=== PATIENT | female | born 1965 | race American Indian/Alaskan Native ===

== ENCOUNTER 2018-04-10 07:03 | Day surgery (SDC) | payer MEDICARE ==
[2018-04-10] MEDS ORDERED: XYLOCAINE MPF 2% ONE (07:20)
[2018-04-10] MEDS ORDERED: SUBLIMAZE ONE ×3 (07:21→09:59)
[2018-04-10] MEDS ORDERED: DIPRIVAN 10 MG/ML IV ONE ×5 (07:21→10:05)
--- NOTE | 2018-04-10 08:04 | Anesthesia Day of Surgery ---
Anesthesia Day of Surgery - Day of Surgery Patient Examined: Yes Patient H&P Reviewed: Yes Patient is NPO: Yes
[2018-04-10] MEDS ORDERED: PHENERGAN PO NR ×2 (08:30→08:48)
[2018-04-10] MEDS ORDERED: PROVENTIL IH NR (08:30)
--- NOTE | 2018-04-10 08:59 | Anesthesia Day of Surgery ---
Anesthesia Day of Surgery - Day of Surgery Patient Examined: Yes Patient H&P Reviewed: Yes Patient is NPO: Yes
[2018-04-10] MEDS ORDERED: BENADRYL IV PRN (09:00)
[2018-04-10] MEDS ORDERED: ANCEF/STERILE WATER 2 GM/20 ML IV NR ×2 (09:00)
[2018-04-10] MEDS ORDERED: SUBLIMAZE IV PRN (09:00)
[2018-04-10] MEDS ORDERED: PEPCID IV NR (09:00)
[2018-04-10] MEDS ORDERED: TRANSDERM-SCOP TD NR (09:00)
[2018-04-10] MEDS ORDERED: LACTATED RINGERS 1,000 ML IV SCH (09:00)
[2018-04-10] MEDS ORDERED: MOTRIN PO PRN (09:23)
[2018-04-10] MEDS ORDERED: TYLENOL PO PRN (09:23)
[2018-04-10] MEDS ORDERED: TORADOL IV PRN (09:23)
[2018-04-10] MEDS ORDERED: ZOFRAN IV PRN (09:23)
[2018-04-10] MEDS ORDERED: LEVAQUIN 500MG/100ML 500 MG/100 ML BAG IV NR (09:30)
[2018-04-10] MEDS ORDERED: DECADRON ONE (09:32)
--- NOTE | 2018-04-10 11:05 | Operative Report ---
PREOPERATIVE DIAGNOSES: 1. Bilateral absence of nipples. 2. 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 POSTOPERATIVE DIAGNOSES: 1. Bilateral absence of nipples. 2. 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 PROCEDURE: Bilateral nipple reconstruction. SURGEON: Michele Savage MD DIRECTOR SHIP: Oscar Amaral CSA DESCRIPTION OF PROCEDURE: The patient was brought to the operating room and placed on the table in supine position. Following administration of general anesthesia, bilateral breasts were prepped with Betadine solution, draped in usual sterile manner. A #11 blade scalpel was used to incise a flag-shaped skin flap, following preoperative markings raised in standard manner, folded upon itself to form a cylinder, secured in place with interrupted 3-0 Monocryl sutures. Donor site was closed with interrupted and running subcuticular 2-0 and 3-0 Monocryl sutures. Mastisol, Steri-Strips, and sterile protective dressing was placed over the nipple. The patient tolerated the procedure well and returned to recovery room in stable condition. JOB# [id number] FTW/NTS
[2018-04-10 12:52] VITALS: BP 145/87
--- NOTE | 2018-04-10 14:52 | Post Anesthesia Evaluation ---
- Post Anesthesia Evaluation Patient Participated: Yes Airway Patent: Yes Stable Respiratory Function: Yes Nausea/Vomiting: No Temp > 96.8F: Yes Pain Manageable: Yes Adequeate Hydration: Yes Anesthesia Complications: No
== END 2018-04-10 13:19 | disposition home or self-care (01) ==
LOC: OR 07:03
PROVIDERS: ATTEND Plastic Surgery
DX: Z42.1 Encounter for breast reconstruction following mastectomy (principal); I10 Essential (primary) hypertension; E11.9 Type 2 diabetes mellitus without complications; G47.30 Sleep apnea, unspecified; K21.9 Gastro-esophageal reflux disease without esophagitis; Z90.13 Acquired absence of bilateral breasts and nipples; Z88.5 Allergy status to narcotic agent; Z88.8 Allergy status to other drugs, medicaments and biological substances; Z90.710 Acquired absence of both cervix and uterus; Z72.89 Other problems related to lifestyle; Z87.891 Personal history of nicotine dependence; Z98.890 Other specified postprocedural states; Z79.899 Other long term (current) drug therapy; Z79.4 Long term (current) use of insulin; Z79.84 Long term (current) use of oral hypoglycemic drugs
CPT/HCPCS: 19350; 82962; J1100; J1956; J2405; J2704; J3010; J7120; Q0169